=== PATIENT | female | born 1990 | race Caucasian/White ===

== ENCOUNTER 2023-08-01 18:37 | Emergency (ER) | payer OTHER, SELFPAY ==
--- NOTE | ~2023-08-01 | XR_ITS ---
EXAMINATION: XR chest 2V DATE: 08/01/2023 19:22 INDICATION: Arrhythmia. TECHNIQUE: Frontal and lateral views of the chest were obtained. COMPARISON: None. FINDINGS: There is no pneumonia, pleural effusion, or pneumothorax. The heart size is normal. IMPRESSION: 1. No acute cardiopulmonary disease. Reviewed, dictated and finalized at location E.
--- NOTE | 2023-08-01 18:40 | ECG_ITS ---
Measurements Intervals [place] Rate: 95 P: 19 IL: 122 QRS: 13 QRSD: 82 T: 5 QT: 350 QTc: 441 Interpretive Statements SINUS RHYTHM NO PREVIOUS ECG AVAILABLE FOR COMPARISON Electronically Signed On 08-02-2023 14:56:26 CDT by Burke Wang M.D.
[2023-08-01 18:55] VITALS: BP 143/87; PULSE 100; RESP 18; TEMP 37; O2SAT 100
[2023-08-01 19:21] LABS: Basophils Absolute Auto 0.1 K/mm3 (0.0-0.1); Basophils Percent Auto 0.5 % (0.2-1.2); Eosinophils Absolute Auto 0.1 K/mm3 (0-0.3); Eosinophils Percent Auto 0.6 % (0-4.4); Hematocrit 40.1 % (37.0-47.0); Hemoglobin 13.3 g/dL (12.0-15.0); Immature Granulocyte Absolute 0.06 K/mm3 (0.00-0.031); Immature Granulocyte Percent A 0.4 % (0-0.5); Lymphocytes Absolute Auto 2.48 K/mm3 (0.9-3.2); Lymphocytes Percent Auto 14.5 % (18.3-44.2); Mean Corpuscular HGB Conc 33.2 g/dl (32-36); Mean Corpuscular Volume 90.3 fl (80-100); Mean Platelet Volume 10.9 fl (7.4-10.4); Monocytes Absolute Auto 0.9 K/mm3 (0.1-0.6); Neutrophils Absolute Auto 13.5 K/mm3 (1.3-6.7); Platelet Count Result 350 k/mm3 (150-375); Red Blood Count 4.44 M/mm3 (4.2-5.4); Red Cell Distribution Width 11.9 % (11.5-14.5); White Blood Count 17.1 K/mm3 (4.5-10.0)
[2023-08-01 19:30] LABS: Alanine Aminotransferase 18 U/L (6-35); Albumin Level 4.3 g/dL (3.5-5.1); Alkaline Phosphatase 88 U/L (38-126); Anion Gap 10 mmol/L (8-16); Aspartate Amino Transferase 19 U/L (14-36); Bilirubin,Total 0.5 mg/dL (0.2-1.3); Blood Urea Nitrogen 12 mg/dL (7-17); Calcium 9.7 mg/dL (8.4-10.2); Carbon Dioxide 20 mmol/L (22-30); Chloride 106 mmol/L (98-107); Estimated CRCL calculation 119 ml/min; Estimated Glomerular Filt Rate > 60; Glucose 205 mg/dL (65-110); Potassium 3.5 mmol/L (3.4-5.0); Sodium 136 mmol/L (137-145)
[2023-08-01 19:43] LABS: Troponin I < 0.012 ng/mL (0.000-0.034)
[2023-08-01 19:56] LABS: Appearance Urine Clear (Clear); Bilirubin Urine Negative (Negative); Blood Urine Negative (Negative); Color Urine Yellow (Yellow); Glucose Urine UA 3+ mg/dL (Negative); Ketones Urine Trace mg/dL (Negative); Leukocyte Esterase Ur Negative LEU/UL (Negative); Nitrate Urine Negative (Negative); Protein Urine Negative (Negative); Urobilinogen Urine 0.2 mg/dL (<2.0); pH Urine 5.5 (5.0-9.0)
[2023-08-01 19:58] LABS: Add Urine Microscopic? NO; Specific Grav Ur 1.043 (1.001-1.035)
[2023-08-01 20:55] VITALS: BP 142/93; PULSE 90; RESP 22; O2SAT 100
--- NOTE | 2023-08-01 21:19 | ED.ARRPALP ---
HPI - Arrhythmia/Palpitations General Chief Complaint: Arrhythmia/Palpitations Stated Complaint: palpitations Time Seen by Provider: 08/01/23 21:00 History of Present Illness HPI narrative: Presents to the emergency department with palpitations at work today. She takes Adderall for ADHD and was started on a new brand of medication just prior to palpitations starting. Her Fitbit was telling her that her heart rate was around 130 beats a minute. Symptoms continued until she was seen in the emergency department. Still having palpitations after being triaged. She is now asymptomatic and denies having had symptoms in the past. She is accompanied by her friend Related Data Home Medications Medication Instructions Recorded Confirmed levonorgestrel-ethinyl estradiol 1 tablet PO DAILY 07/05/22 06/27/23 0.1 mg-20 mcg tablet (Vienva) Allergies Allergy/AdvReac Type Severity Reaction Status Date / Time No Known Allergies Allergy Verified 08/01/23 20:59 Review of Systems Review of Systems: Review of systems negative except what is documented in the HPI [facility] Past Medical History Medical History ADD (attention deficit disorder) Appendicitis Insomnia Lymph node enlargement Migraines Vitamin D deficiency Surgical History Surgical History Hx of appendectomy Family History Family History Mother No problems noted. Grandparent Breast cancer Father No problems noted. 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 HEAD: Normocephalic, atraumatic. EYES: PERRLA and EOMI. ENT: Nares clear, no rhinorrhea or epistaxis. Mucous membranes moist. NECK: Supple. CHEST: Clear to auscultation. No respiratory distress. HEART: Regular rate and rhythm. ABDOMEN: Soft, nontender, nondistended. EXTREMITIES: Normal range of motion. No edema. SKIN: Warm, dry, no rash. NEURO: No focal deficits. Alert and oriented x3. PSYCH: Normal mood and affect. Course Course Emergency Course: Vital signs stable in the emergency department. Heart rate was initially 100 at triage. Symptoms could be SVT versus medication reaction. Advised to hold further Adderall until she speaks to her primary care provider. Vital Signs Vital signs: Vital Signs Temperature 37.0 C 08/01/23 18:55 Pulse Rate 100 08/01/23 18:55 Respiratory Rate 18 08/01/23 18:55 Blood Pressure 143/87 H 08/01/23 18:55 Pulse Oximetry 100 08/01/23 18:55 Oxygen Delivery Room Air 08/01/23 18:55 Temperature 37.0 C 08/01/23 18:55 Pulse Rate 90 08/01/23 20:55 Respiratory Rate 22 H 08/01/23 20:55 Blood Pressure 142/93 H 08/01/23 20:55 Pulse Oximetry 100 08/01/23 20:55 Oxygen Delivery Room Air 08/01/23 18:55 MDM - Arrhythmia/Palpitations MDM Narrative Medical decision making narrative: Chest x-ray ordered and negative for infiltrates Blood sugar slightly elevated 205 and patient has urine ketones. Will discuss results wit
== END 2023-08-01 22:26 | disposition home or self-care (01) ==
LOC: ANHED 21:51
PROVIDERS: Emergency Medicine; Emergency Provider Emergency Medicine; PCP Physician Assistant Medical
DX: R00.2 Palpitations (principal); D72.829 Elevated white blood cell count, unspecified; R73.9 Hyperglycemia, unspecified; E55.9 Vitamin D deficiency, unspecified; F90.9 Attention-deficit hyperactivity disorder, unspecified type; G47.00 Insomnia, unspecified; Z87.891 Personal history of nicotine dependence
CPT/HCPCS: 36415; 71046; 80053; 81003; 84484; 85025; 93005; 99284

== ENCOUNTER 2024-12-14 03:13 | Emergency (ER) | payer BC, SELFPAY ==
[2024-12-14 03:15] VITALS: BP 149/95; PULSE 91; RESP 14; TEMP 36.9; O2SAT 100
[2024-12-14 04:06] LABS: BEDSIDEPREGUCG Positive (Negative)
[2024-12-14 04:18] LABS: Add Urine Microscopic? NO; Appearance Urine Clear (Clear); Bilirubin Urine Negative (Negative); Blood Urine Negative (Negative); Color Urine Yellow (Yellow); Glucose Urine UA Negative (Negative); Ketones Urine Negative (Negative); Leukocyte Esterase Ur Negative LEU/UL (Negative); Nitrate Urine Negative (Negative); Protein Urine Negative (Negative); Specific Grav Ur 1.021 (1.001-1.035); Urobilinogen Urine 0.2 mg/dL (<2.0)
[2024-12-14 04:19] LABS: Basophils Absolute Auto 0.1 K/mm3 (0.0-0.1); Basophils Percent Auto 0.4 % (0.2-1.2); Eosinophils Absolute Auto 0.2 K/mm3 (0-0.3); Eosinophils Percent Auto 1.5 % (0-4.4); Hematocrit 36.6 % (37.0-47.0); Hemoglobin 12.5 g/dL (12.0-15.0); Immature Granulocyte Absolute 0.02 K/mm3 (0.00-0.031); Immature Granulocyte Percent A 0.2 % (0-0.5); Lymphocytes Absolute Auto 3.26 K/mm3 (0.9-3.2); Lymphocytes Percent Auto 28.2 % (18.3-44.2); Mean Corpuscular HGB Conc 34.2 g/dl (32-36); Mean Corpuscular Hemoglobin 30.2 pg (26-34); Mean Corpuscular Volume 88.4 fl (80-100); Mean Platelet Volume 10.5 fl (7.4-10.4); Monocytes Absolute Auto 0.8 K/mm3 (0.1-0.6); Monocytes Percent Auto 7.2 % (2.6-8.5); Neutrophils Absolute Auto 7.2 K/mm3 (1.3-6.7); Neutrophils Percent Auto 62.5 % (45.5-73.1); Platelet Count Result 333 k/mm3 (150-375); Red Blood Count 4.14 M/mm3 (4.2-5.4); Red Cell Distribution Width 11.9 % (11.5-14.5); White Blood Count 11.6 K/mm3 (4.5-10.0)
[2024-12-14 04:28] LABS: Alanine Aminotransferase 12 U/L (6-35); Albumin Level 3.8 g/dL (3.5-5.1); Alkaline Phosphatase 59 U/L (38-126); Anion Gap 9 mmol/L (4-12); Aspartate Amino Transferase 14 U/L (14-36); Bilirubin,Total 0.4 mg/dL (0.2-1.3); Blood Urea Nitrogen 9 mg/dL (7-17); Carbon Dioxide 22 mmol/L (22-30); Chloride 105 mmol/L (98-107); Estimated CRCL calculation 151 ml/min; Estimated Glomerular Filt Rate > 60; Glucose 148 mg/dL (65-110); Lipase 81 U/L (23-300); Potassium 3.9 mmol/L (3.4-5.0); Sodium 136 mmol/L (137-145)
--- NOTE | 2024-12-14 04:43 | ED.ABDPAIN ---
HPI - Abdominal Pain General Chief Complaint: Abdominal Pain Stated Complaint: abd pain, vomiting, 13 weeks preg Time Seen by Provider: 12/14/24 04:09 History of Present Illness HPI narrative: 34-year-old otherwise healthy female presenting to the emergency department with left sided vague abdominal discomfort associated some nausea. She is approximately 14 weeks by last menstrual period and ultrasonography she had 11 weeks confirming intrauterine . Her OBGYN is in [place]. Patient denies any vaginal bleeding or vaginal spotting, no leakage of fluids, no vomiting but states she feels nauseous. No pelvic pain, vaginal pain, dysuria, hematuria. No constipation or diarrhea. No fever chills. No injury trauma. Patient has had a previous uncomplicated course aside from gestational diabetes. No previous abdominal surgeries. Related Data Home Medications ?Medication ?Instructions ?Recorded ?Confirmed ?Last Taken ?Type levonorgestrel-ethinyl estradiol 1 tablet PO DAILY 07/05/22 03/26/24 Unknown History 0.1 mg-20 mcg tablet (Vienva) cholecalciferol (vitamin D3) 125 125 mcg PO DAILY 03/29/24 Unknown History mcg (5,000 unit) capsule cyanocobalamin (vitamin B-12) 2,000 mcg PO DAILY 03/29/24 Unknown History 1,000 mcg tablet Allergies Allergy/AdvReac Type Severity Reaction Status Date / Time sumatriptan AdvReac [facility] Verified 12/14/24 03:14 off/sedated Review of Systems Review of Systems: As reviewed above in HPI [facility] Past Medical History Medical History Dyslipidemia Lymph node enlargement Appendicitis Vitamin D deficiency Migraines ADD (attention deficit disorder) Insomnia Surgical History Surgical History Hx of appendectomy Family History Family History Mother No problems noted. Grandparent Breast cancer Father No problems noted. 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 Mucous membranes moist. NECK: Supple. CHEST: [Clear to auscultation. No respiratory distress.] HEART: [Regular rate and rhythm]. No murmur heard. [Normal peripheral pulses.] ABDOMEN: [Soft, nondistended], [nontender], [No rigidity or guarding] EXTREMITIES: Normal range of motion. [No edema.] SKIN: Warm, dry, no rash. NEURO: [No focal deficits]. Alert and oriented [x3.] PSYCH: [Normal mood and affect.] Course Vital Signs Vital signs: Vital Signs Temperature 36.9 C 12/14/24 03:15 Pulse Rate 91 12/14/24 03:15 Respiratory Rate 14 12/14/24 03:15 Blood Pressure 149/95 H 12/14/24 03:15 Pulse Oximetry 100 12/14/24 03:15 Oxygen Delivery Room Air 12/14/24 03:15 Temperature 36.9 C 12/14/24 03:15 Pulse Rate 63 12/14/24 05:49 Respiratory Rate 18 12/14/24 05:49 Blood Pressure 127/67 12/14/24 05:49 Pulse Oximetry 100 12/14/24 05:49 Oxygen Delivery Room Air 12/14/24 03:15 MDM - Abdominal Pain MDM Narrative Medical decision making narrative: 34-year-old female presenting to the emergency room with left-sided abdominal discomfort associated nausea without vomiting. She is approximately 13 weeks 5 days confirmed by last ultrasonography showing an intrauterine . She denies any vaginal bleeding or discharge. No leakage of fluids. No urinary complaints. No diarrhea constipation. She has sick contacts with people going through flu-like illness at home. Denies any abdominal surgical history. No trauma or injuries. She has a soft nontender nondistended abdomen. Vital signs within acceptable limits, considerations presently are for viral gastroenteritis, gastritis, GERD, less likely diverticulitis or other intra-abdominal process on the left side. Low suspicion ovarian process such as torsion. She only has a confirmed intrauterine so ectopic can be safely ruled out. Workup was ordered this time including a CBC, CMP, urinalysis, type and screen, PT, PTT. She was provided treatments with Pepcid Zofran and fluid bolus and Bentyl for abdominal cramping. Patient was re-evaluated after treatments. Patient felt significantly improved after oral medications and IV treatment. Her laboratory studies show a minor leukocytosis but normal kidney and renal and/hepatic function. Normal glucose. No urinalysis signs of infection. Negative viral panel. Given patient's symptomatic improvement and relatively normal labs I believe she was a safe candidate for outpatient follow-up with oral medications and instructions to return if she has any persistent, new or worsening pain. Patient was comfortable this plan and safely discharged home. Medical Records Attestation: I reviewed the patient's medical records. Lab Data Attestation: I reviewed the patient's lab results. 12/14/24 04:03 12/14/24 04:03 Labs: Lab Results 12/14/24 12/14/24 12/14/24 Range/Units 04:03 04:04 05:37 WBC 11.6 H (4.5-10.0) K/mm3 RBC 4.14 L (4.2-5.4) M/mm3 Hgb 12.5 (12.0-15.0) g/dL Hct 36.6 L (37.0-47.0) % MCV 88.4 (80-100) fl MCH 30.2 (26-34) pg MCHC 34.2 (32-36) g/dl RDW 11.9 (11.5-14.5) % Plt Count 333 (150-375) k/mm3 MPV 10.5 H (7.4-10.4) fl Immature Gran % (Auto) 0.2 (0-0.5) % Neut % (Auto) 62.5 (45.5-73.1) % Lymph % (Auto) 28.2 (18.3-44.2) % [place] % (Auto) 7.2 (2.6-8.5) % Eos % (Auto) 1.5 (0-4.4) % Baso % (Auto) 0.4 (0.2-1.2) % Lymph # (Auto) 3.26 H (0.9-3.2) K/mm3 [place] # (Auto) 0.8 H (0.1-0.6) K/mm3 Eos # (Auto) 0.2 (0-0.3) K/mm3 Baso # (Auto) 0.1 (0.0-0.1) K/mm3 Abs Immat Gran (auto) 0.02 (0.00-0.031) K/mm3 Absolute Neuts (auto) 7.2 H (1.3-6.7) K/mm3 Absolute Nucleated RBC 0.000 (0.0-0.012) K/mm3 Nucleated RBC % 0.0 (0.0-0.2) % Sodium 136 L (137-145) mmol/L Potassium 3.9 (3.4-5.0) mmol/L Chloride 105 (98-107) mmol/L Carbon Dioxide 22 (22-30) mmol/L Anion Gap 9 (4-12) mmol/L BUN 9 (7-17) mg/dL Creatinine 0.51 L (0.7-1.0) mg/dL Estim Creat Clear Calc 151 ml/min Estimated GFR > 60 (59 - ) Glucose 148 H (65-110) mg/dL Calcium 9.0 (8.4-10.2) mg/dL Total Bilirubin 0.4 (0.2-1.3) mg/dL AST 14 (14-36) U/L ALT 12 (6-35) U/L Alkaline Phosphatase 59 (38-126) U/L Total Protein 7.0 (6.3-8.2) g/dL Albumin 3.8 (3.5-5.1) g/dL Lipase 81 (23-300) U/L Urine Color Yellow (Yellow) Urine Appearance Clear (Clear) Urine pH 6.0 (5.0-9.0) Ur Specific [place] 1.021 (1.001-1.035) Urine Protein Negative (Negative) mg/dL Urine Glucose (UA) Negative (Negative) mg/dL Urine Ketones Negative (Negative) mg/dL Ur Blood (Man) Negative (Negative) Urine Nitrate Negative (Negative) Urine Bilirubin Negative (Negative) Urine Urobilinogen 0.2 (<2.0) mg/dL Leukocyte Esterase Rfl Negative (Negative) LUIS/UL POC Urine HCG, Qual Positive (Negative) Influenza A (RT-PCR) Negative (Negative) Influenza B (RT-PCR) Negative (Negative) RSV (RT-PCR) Negative (Negative) SARS-CoV-2 RNA (RT-PCR) Negative (Negative) Discharge Plan Discharge Clinical Impression: Nausea and vomiting during , Abdominal pain affecting Patient Disposition: Home, Self-Care Condition: Stable Instructions: Antibiotic Form, Nausea and Vomiting in (ED), Abdominal Pain (ED) Additional Instructions: Follow-up with your regular primary care provider and OBGYN. We will send you home with some medications to try for continued symptoms if you have any recurrence at home. Return if you have any persistent, new, worsening symptoms or any developing fevers that presents despite Tylenol. Patient Language: [place] Prescriptions: New famotidine [Pepcid] 20 mg tablet 20 mg PO BID Qty: 20 0RF dicyclomine 20 mg tablet 20 mg PO TID PRN (Reason: abdominal pain) Qty: 14 0RF ondansetron 4 mg tablet,disintegrating 4 mg PO Q8H PRN (Reason: nausea and vomiting) Qty: 10 0RF No Action levonorgestrel-ethinyl estrad [Vienva] 0.1-20 mg-mcg tablet 1 tablet PO DAILY sumatriptan succinate 50 mg tablet See Rx Instructions PO .COMPLEX Qty: 20 0RF Rx Instructions: take 1 tab at onset of headache; if no relief may repeat 1 tab after at least 2 hrs; max = 4 tabs/24 hr PO Ubrelvy 50 mg tablet 50 mg PO ONCE Qty: 20 0RF Rx Instructions: as a single dose; may repeat once in >=2 hours after first dose if needed cholecalciferol (vitamin D3) 125 mcg (5,000 unit) capsule 125 mcg PO DAILY cyanocobalamin (vitamin B-12) 1,000 mcg tablet 2,000 mcg PO DAILY metformin 500 mg tablet extended release 24 hr 500 mg PO BID Qty: 180 0RF trazodone 50 mg tablet See Rx Instructions PO QHS PRN (Reason: insomnia) Qty: 180 0RF Rx Instructions: 1-2 tabs orally every day at bedtime PRN; dextroamphetamine-amphetamine [Adderall] 15 mg tablet 15 mg PO BID Qty: 60 0RF Rx Instructions: administer doses at least 4-6 hours apart Follow-up/Referrals: Elisabeth Degroot PA-C [Primary Care Provider] - Time of Disposition: 06:38
[2024-12-14] MEDS: DICYCLOMINE HCL 10 MG CAPSULE 20 MG PO (05:23)
[2024-12-14] MEDS: ONDANSETRON INJ 4 MG/2 ML VIAL IV PUSH (05:23)
[2024-12-14] MEDS: LACTATED RINGERS 1,000 ML 999 ML IV CONT (05:23)
[2024-12-14] MEDS: FAMOTIDINE 20 MG/2 ML VIAL IV PUSH (05:23)
[2024-12-14 05:49] VITALS: BP 127/67; PULSE 63; RESP 18; O2SAT 100
[2024-12-14 06:17] LABS: Influenza A QL RT-PCR Negative (Negative); Influenza B QL RT-PCR Negative (Negative); RSV RNA, RT-PCR Negative (Negative); SARS-CoV-2 RNA PCR Negative (Negative)
== END 2024-12-14 06:57 | disposition home or self-care (01) ==
PROVIDERS: Emergency Provider Student in an Organized Health Care Education/Training Program; PCP Physician Assistant Medical
DX: O21.9 Vomiting of pregnancy, unspecified (principal); O26.891 Other specified pregnancy related conditions, first trimester; R10.9 Unspecified abdominal pain; Z3A.13 13 weeks gestation of pregnancy; Z20.822 Contact with and (suspected) exposure to COVID-19; O99.281 Endocrine, nutritional and metabolic diseases complicating pregnancy, first trimester; E78.5 Hyperlipidemia, unspecified; E55.9 Vitamin D deficiency, unspecified; O99.341 Other mental disorders complicating pregnancy, first trimester; F98.8 Other specified behavioral and emotional disorders with onset usually occurring in childhood and adolescence; Z87.891 Personal history of nicotine dependence; Z79.84 Long term (current) use of oral hypoglycemic drugs; Z79.899 Other long term (current) drug therapy
CPT/HCPCS: 36415; 80053; 81003; 81025; 83690; 85025; 87637; 96361; 96374; 96375; 99284; A9270; J2405; J7120